=== PATIENT | male | born 1935 | race Caucasian/White ===

== ENCOUNTER 2023-09-26 18:36 | Emergency (ER) | payer MEDICARE, SELFPAY ==
[2023-09-26 18:38] VITALS: BP 163/85
[2023-09-26 19:30] VITALS: BMI 17.2
--- NOTE | 2023-09-26 19:40 | ED.GENMED ---
History of Present Illness
General
Chief Complaint: Depression
Source: patient and family
Exam Limitations: none
Time Seen by Provider: 09/26/23 19:05
Nursing documentation reviewed up to this point in time: agreed with
History of Present Illness
History of Present Illness:
Patient presents to ED for evaluation secondary to increased anxiety and depression, despite starting on Zoloft by his primary care physician 2 weeks ago. Patient currently lives alone and has been for the past 10 years, but reports increased level
anxiety, decreased appetite, and decreased desire to leave the house. Today, patient was visiting his daughter, and was noted to be pacing constantly and feeling anxious. Patient requested that he come to the hospital to be evaluated. Patient
however, denies suicidal or homicidal ideation. Denies recent illness. Denies fever or chills. Denies dizziness or headache. Denies loss of sensation or weakness.
Review of Systems
Review of Systems
Allergies reviewed?: Yes
All Other Systems: ROS reviewed and negative except as documented in HPI and ROS
Constitutional: Reports no symptoms
EENT: Reports no symptoms
Respiratory: Reports no symptoms
Cardiac: Reports no symptoms
ABD/GI: Reports no symptoms
Musculoskeletal: Reports no symptoms
Skin: Reports no symptoms
Neurological: Reports no symptoms
Psychiatric: Reports depression and anxiety
Phy Exam
Physical Exam
Physical Exam:
Physical Exam
General: no apparent distress, not acutely ill. afebrile
Head: nc/at. eomi
Neck: supple. no meningeal signs.
Heart: s1/s2 regular rate and rhythm, no murmur. equal radial pulses.
Lungs: no acute respiratory distress. clear bilaterally
Abdomen: normal bowel sounds. not tender.
Neuro: alert and oriented. no focal neurological deficits
Skin: no rash
Psychiatric: well kept. interactive and cooperative
Extremities: no edema. no calf tenderness.
Course
Orders/Labs/Results
Orders:
Orders
09/26/23 19:22
CT Head W/o Iv Contrast Urgent
Comment:
Reason For Exam: mental status change
Crisis Consult Routine
Reason for Consult: depression/anxiety
09/26/23 19:39
Acetaminophen Urgent
Alcohol Urgent
Complete Blood Count/No Diff Urgent
Comprehensive Metabolic Panel Urgent
Magnesium Urgent
Salicylate Urgent
TSH Reflex To Free T4 Urgent
09/26/23 19:59
0.9% Sodium Chloride 500 ml [Nss] 500 ml IV BOLUS
09/26/23 21:12
Lorazepam [Ativan] 1 mg IV NOW STA
09/26/23 21:13
Lorazepam [Ativan] 1 mg PO NOW STA
09/26/23 22:36
Fentanyl, Urine Urgent
Urinalysis Reflex To Culture Urgent
Date Specimen was Collected: 09/26/23
Time Specimen was Collected: 22:34
Urine Drug Abuse Screen Urgent
Date Specimen was Collected: 09/26/23
Time Specimen was Collected: 22:35
Abnormal Lab Results
09/26/23 09/26/23
19:39 22:36
RBC 3.85 L 10^6/uL
(4.70-6.10)
Hgb 12.6 L g/dL
(13.0-18.0)
Hct 35.6 L %
(39.0-52.0)
MCH 32.7 H pg
(27.0-31.0)
Sodium 133 L mmol/L
(135-145)
BUN 30 H mg/dl
(9-20)
Glucose 135 H mg/dl
(70-99)
Salicylates < 1.0 L mg/dl
(2.0-20.0)
Urine Opiates Screen Positive H
(Negative)
Acetaminophen < 10 L ug/ml
(10-30)
U Benzodiazepines Scrn Positive H
(Negative)
09/26/23 19:39
09/26/23 19:39
Vital Signs
Initial and Last Documented VS:
Initial Vital Signs
Temp Pulse Resp BP Pulse Ox
97.9 F 78 18 163/85 99
09/26/23 18:38 09/26/23 18:38 09/26/23 18:38 09/26/23 18:38 09/26/23 18:38
Last Documented Vital Signs
Temp Pulse Resp BP Pulse Ox
97.9 F 66 18 116/52 97
09/26/23 18:38 09/27/23 00:08 09/27/23 00:08 09/27/23 00:08 09/27/23 00:08
MDM/Problems Addressed
MDM/Problems Addressed:
CT head: NAD.
Blood work reviewed, suggestive of mild dehydration, otherwise unremarkable.
Patient evaluated by Jennifer [place] janet and offered potential transfer to inpatient [facility] psychiatric facility for further evaluation and treatment. However, at this time, patient and daughter prefer to go home, and consider potential inpatient
treatment over the weekend. As such, patient will be discharged home, where he will continue to take his already prescribed medications.
*Critical Care Note
Total Time (30-74mins, 75-104mins- exclusive of procedures): Not Applicable
ED Attending Note
-
Portions of this chart may have been created with voice recognition software.� Occasional wrong word or��sound alike� substitutions may have occurred due to the inherent limitations of voice recognition software.
Discharge Plan
Departure
Patient Disposition: Home (Routine Discharge)
Date of Disposition: 09/26/23
Time of Disposition: 23:46
Patient with high blood pressure during this ER visit?: Yes
Discharge Problem:
Depression
Instructions: Depression, Adult (DC)
Referrals:
Quinten Salinas MD [Family Provider] -
Activity Restrictions/Additional Instructions:
As discussed, please follow-up with your primary care physician and/or psychiatrist for further evaluation and treatment.
Interventions
Interventions:
*Risk Screen - Suicide Last Done: 09/26/23 19:31
*General Assessment Last Done: 09/26/23 18:42
*Neglect/Abuse Screening Last Done: 09/26/23 19:47
ED- Fall Risk Assessment Last Done: 09/26/23 19:47
*ED COVID-19 Vaccine History Last Done: 09/26/23 18:47
*Nursing Disposition Last Done: 09/27/23 00:08
ED-Psychological Assessment Last Done: 09/26/23 19:47
Discharge Date and Time
Discharge Date/Time: 09/27/23 00:09
Print Language: [id number]
[2023-09-26 19:47] LABS: Hematocrit 35.6 % (39.0-52.0); Hemoglobin 12.6 g/dL (13.0-18.0); Mean Corp Hgb Conc. 35.4 g/dL (33.0-37.0); Mean Corpuscular Hgb 32.7 pg (27.0-31.0); Mean Corpuscular Volume 92.5 fL (80.0-94.0); Mean Platelet Volume 9.3 fL (7.4-10.4); Platelet Count 247 10^3/uL (130-400); Red Blood Cell Count 3.85 10^6/uL (4.70-6.10); Red Cell Dist. Width 12.2 % (11.5-14.5); White Blood Cell Count 5.8 10^3/uL (4.8-10.8)
[2023-09-26 20:00] VITALS: BP 114/64
[2023-09-26] MEDS: NSS 500 IV (20:02)
[2023-09-26 20:19] LABS: ALT (SGPT) 26 U/L (0-50); AST (SGOT) 33 U/L (17-59); Acetaminophen < 10 ug/ml (10-30); Albumin 4.3 g/dl (3.5-5.0); Alkaline Phosphatase 67 U/L (38-126); Blood Urea Nitrogen 30 mg/dl (9-20); Calcium 9.7 mg/dl (8.4-10.2); Carbon Dioxide 26 mmol/L (22-30); Chloride 99 mmol/L (98-107); Estimated Creatinine Clearance 32 ml/min; Glucose 135 mg/dl (70-99); Salicylate < 1.0 mg/dl (2.0-20.0); Sodium 133 mmol/L (135-145); Total Bilirubin 0.7 mg/dl (0.2-1.3); eGFR 53.17
[2023-09-26 20:22] LABS: Alcohol None Detected
[2023-09-26 20:51] LABS: TSH Reflex To Free T4 1.81 uIU/ml (0.47-4.68)
[2023-09-26] MEDS: ATIVAN 1 MG PO (21:16)
[2023-09-26 22:00] VITALS: BP 122/66
[2023-09-26 22:46] LABS: Urine Albumin Negative (Neg - Trace); Urine Bilirubin Negative (Negative); Urine Character Clear (Clear); Urine Color Yellow; Urine Glucose Negative (Negative); Urine Ketone Negative (Negative); Urine Leukocyte Negative (Negative); Urine Nitrite Negative (Negative); Urine Occult Blood Negative (Negative); Urine Urobilinogen Negative (Neg - 1+)
[2023-09-26 22:59] LABS: Amphetamines Negative (Negative); Barbiturates Negative (Negative); Benzodiazepines Positive (Negative); Buprenorphine Negative (Negative); Cocaine Negative (Negative); Marijuana Negative (Negative); Methadone Negative (Negative); Methamphetamines Negative (Negative); Opiates Positive (Negative); Phencyclidine Negative (Negative); Tricyclic Antidepressants Negative (Negative)
[2023-09-26 23:20] LABS: Fentanyl, Urine Negative (Negative)
[2023-09-27] VITALS: BP 116/52
[2023-09-27 00:08] VITALS: BP 116/52
== END 2023-09-27 00:09 | disposition home or self-care (01) ==
LOC: EMR 18:36
PROVIDERS: EMERGENCY PHYSICIAN Emergency Medicine; FAMILY PHYSICIAN Internal Medicine
DX: F32.A Depression, unspecified (principal); F41.9 Anxiety disorder, unspecified; R03.0 Elevated blood-pressure reading, without diagnosis of hypertension; R41.82 Altered mental status, unspecified; R40.4 Transient alteration of awareness
CPT/HCPCS: 99285; 70450; 80053; 80143; 80179; 80306; 80307; 81003; 82077; 83735; 84443; 85027